=== PATIENT | female | born 1940 | race Hispanic/Latino ===

== ENCOUNTER 2022-11-26 07:23 | Observation (INO) | payer MEDICARE ==
[2022-11-20 10:28] LABS: BASOPHILS % 0.5 % (0.0-1.0); EOSINOPHILS # (AUTO) 0.2 (0.0-0.4); EOSINOPHILS % 2.2 % (0.0-6.0); HEMOGLOBIN 13.4 g/dL (12.0-16.0); LYMPHOCYTES # (AUTO) 1.9 (1.0-3.2); LYMPHOCYTES % 22.8 % (18.0-39.1); MEAN CORPUSCULAR HEMOGLOBIN 29.5 pg (28-32); MEAN CORPUSCULAR HGB CONC 33.5 g/dL (31-35); MEAN CORPUSCULAR VOLUME 88.1 fL (81-99); MONOCYTES # (AUTO) 0.5 (0.2-0.8); MONOCYTES % 5.3 % (4.4-11.3); NEUTROPHILS # (AUTO) 5.9 (2.1-6.9); PLATELET COUNT 225 x10e3/uL (140-360); RED BLOOD COUNT 4.54 x10e6/uL (3.6-5.1); RED CELL DISTRIBUTION WIDTH 13.5 % (11.7-14.4)
[2022-11-20 10:49] LABS: ANION GAP 14.8 mmol/L (8-16); CALCIUM 8.8 mg/dL (8.4-10.2); CREATININE, SERUM 0.86 mg/dL (0.57-1.11); POTASSIUM 3.8 mmol/L (3.5-5.1)
[~2022-11-26] VITALS: Ht 149.9 cm; Wt 101.2 kg
[~2022-11-26 07:23] MED LIST: ATORVASTATIN CA20 MG PO; DICYCLOMINE HCL20 MG PO; FUROSEMIDE40 MG PO; GABAPENTIN100 MG PO; LINZESS72 MCG PO; METFORMIN HCL500 MG PO; NEXIUM40 MG PO
[2022-11-26] MEDS ORDERED: LACTATED RINGER'S 1,000 ML ONE (07:57)
[2022-11-26] MEDS ORDERED: insulin pen SQ (08:17)
[2022-11-26] MEDS ORDERED: SUGAMMADEX SODIUM 200 MG/2 ML VIAL IV ONE (09:13)
[2022-11-26] MEDS ORDERED: ACETAMINOPHEN 1000 MG/100 ML 100 ML IV ONE (09:13)
[2022-11-26] MEDS ORDERED: HYDROMORPHONE 1MG/1ML INJ ONE (09:20)
[2022-11-26] MEDS ORDERED: BUPIVACAINE HCL 0.5% INJ 30 ML VIAL INJ ONE (09:22)
[2022-11-26] MEDS ORDERED: ROPIVACAINE 246.25 MG, EPINEPHRINE HCL 1:1000 1ML 0.5 MG, CLONIDINE HCL 0.08 MG, KETORO... INJ ONE ×5 (11:30)
[2022-11-26] MEDS ORDERED: DEXAMETHASONE SOD PHOS INJ 4 MG/ML SDV ONE (12:12)
[2022-11-26] MEDS ORDERED: SEVOFLURANE INHAL SOLN 250 ML PEN BTL ONE (12:12)
[2022-11-26] MEDS ORDERED: ONDANSETRON HCL INJ 2MG/ML 2ML 2 MG/ML VIAL ONE ×2 (12:12→12:50)
[2022-11-26] MEDS ORDERED: POVIDONE IODINE 0.05% 0.05 % ML PO ONE (12:12)
[2022-11-26] MEDS ORDERED: LIDOCAINE HCL 2% LOCAL INJ 5 ML SDV VIAL INJ ONE (12:12)
[2022-11-26] MEDS ORDERED: ROCURONIUM BROMIDE 10 MG/ML 5ML VIAL IV ONE (12:12)
[2022-11-26] MEDS ORDERED: EPHEDRINE SULFATE INJ 50 MG/ML VIAL ONE (12:12)
[2022-11-26] MEDS ORDERED: PHENYLEPHRINE HCL 1% 10 MG/ML VIAL ONE (12:12)
[2022-11-26] MEDS ORDERED: PROPOFOL IV EMULSION 10 MG/ML 20 ML VIAL ONE (12:12)
[2022-11-26] MEDS ORDERED: FENTANYL CITRATE/PF 100MCG/2 ML INJ ONE (12:21)
[2022-11-26] MEDS ORDERED: HYDROMORPHONE 1MG/1ML INJ IV PRN (12:30)
[2022-11-26] MEDS ORDERED: HYDROCODONE/APAP 7.5MG-325MG 1 EA TAB PO PRN (12:30)
[2022-11-26] MEDS ORDERED: ACETAMINOPHEN 1000 MG/100 ML IV PRN (12:30)
[2022-11-26 15:49] VITALS: BP 103/48
[2022-11-26 16:04] VITALS: BP 103/48
[2022-11-26 16:05] VITALS: BP 103/48
[2022-11-26] MEDS: GABAPENTIN 100 MG CAP PO SCH ×2 (16:17→20:58)
[2022-11-26] MEDS: SODIUM CHLORIDE 0.9% 1000ML 1,000 ML IV SCH ×2 (16:17→20:59)
[2022-11-26] MEDS: METFORMIN HCL 500 MG TAB PO SCH (16:18)
[2022-11-26] MEDS: INSULIN REGULAR, HUMAN 100 UNIT/1 ML SQ SCH ×2 (17:00→23:59)
[2022-11-26 20:17] VITALS: BP 117/58
[2022-11-26 20:18] VITALS: BP 117/58
[2022-11-27] VITALS: BP 123/56
[2022-11-27] MEDS ORDERED: ONDANSETRON HCL INJ 2MG/ML 2ML 2 MG/ML VIAL IV PRN (00:15)
[2022-11-27] MEDS: SODIUM CHLORIDE 0.9% 1000ML 1,000 ML IV SCH (00:31)
[2022-11-27 05:00] VITALS: BP 95/50
[2022-11-27 05:15] LABS: BASOPHILS % 0.3 % (0.0-1.0); HEMATOCRIT 35.8 % (34.2-44.1); HEMOGLOBIN 11.4 g/dL (12.0-16.0); LYMPHOCYTES # (AUTO) 0.8 (1.0-3.2); LYMPHOCYTES % 5.6 % (18.0-39.1); MEAN CORPUSCULAR HEMOGLOBIN 29.5 pg (28-32); MEAN CORPUSCULAR HGB CONC 31.8 g/dL (31-35); MEAN CORPUSCULAR VOLUME 92.7 fL (81-99); MONOCYTES # (AUTO) 0.7 (0.2-0.8); MONOCYTES % 4.6 % (4.4-11.3); PLATELET COUNT 176 x10e3/uL (140-360); RED BLOOD COUNT 3.86 x10e6/uL (3.6-5.1); RED CELL DISTRIBUTION WIDTH 14.2 % (11.7-14.4)
[2022-11-27 05:38] LABS: ANION GAP 15.5 mmol/L (8-16); CREATININE, SERUM 1.06 mg/dL (0.57-1.11); POTASSIUM 4.5 mmol/L (3.5-5.1)
[2022-11-27] MEDS: INSULIN REGULAR, HUMAN 100 UNIT/1 ML SQ SCH (05:39)
[2022-11-27 08:09] VITALS: BP 89/59
[2022-11-27] MEDS: GABAPENTIN 100 MG CAP PO SCH (08:57)
[2022-11-27] MEDS: METFORMIN HCL 500 MG TAB PO SCH (08:57)
[2022-11-27 12:21] VITALS: BP 100/49
[2022-11-27] MEDS ORDERED: ONDANSETRON HCL 4 MG ORAL DISINTEGRATING TAB PO PRN (12:30)
[2022-11-27] MEDS ORDERED: PANTOPRAZOLE SOD 40 MG TABEC PO SCH (13:00)
== END 2022-11-27 13:26 | disposition home or self-care (01) ==
LOC: OR 07:23 → PACU V 12:27 → MED/SURG 15:28
PROVIDERS: ADMIT Surgery; ATTEND Surgery
DX: K43.0 Incisional hernia with obstruction, without gangrene (principal); I10 Essential (primary) hypertension; E11.9 Type 2 diabetes mellitus without complications; Z01.810 Encounter for preprocedural cardiovascular examination; Z01.812 Encounter for preprocedural laboratory examination; Z01.818 Encounter for other preprocedural examination; Z20.822 Contact with and (suspected) exposure to COVID-19; Z79.4 Long term (current) use of insulin; Z79.84 Long term (current) use of oral hypoglycemic drugs; Z79.899 Other long term (current) drug therapy
CPT/HCPCS: 0223U; 36415 ×3; 49618; 49623; 71046; 80048 ×2; 82948 ×2; 85025 ×2; 88302; 93005; 96360; 96361; C1781; C9113; G0378 ×2; J0131; J0171; J0690; J1100; J1170; J1885; J2001; J2370; J2405 ×2; J2704; J2795; J3010; J7030 ×2; J7121